=== PATIENT | female | born 1975 | race Caucasian/White ===

== ENCOUNTER 2023-08-14 01:10 | Outpatient (CLI) | payer OTHER, SELFPAY ==
[2023-08-14 12:06] LABS: HCT 43.6 % (36.0-46.0); HGB 14.3 g/dL (11.2-15.7); MCH 29.2 pg (27.0-33.0); MCHC 32.8 % (32.0-36.0); MCV 89 fL (80-95); Platelet Count 305 10^3/uL (130-400); RBC 4.89 10^6/uL (3.93-5.22); RDW 12.7 % (11.7-14.6); RDW-SD 41.7 fL; WBC 8.41 10^3/uL (4.4-10.8)
[2023-08-14 12:33] LABS: ALT 19 U/L (14-59); AST 18 U/L (15-37); Albumin 3.7 g/dL (3.4-5.0); Alkaline Phosphatase 49 U/L (46-116); Anion Gap 6.2 mmol/L (3-11); BUN 13 mg/dL (7-18); Bilirubin, Total 0.6 mg/dL (0.2-1.0); CO2 27.8 mmol/L (21.0-32.0); CREATININE 0.9 mg/dL (0.55-1.02); Calcium 9.3 mg/dL (8.5-10.1); Calculated LDL 57 mg/dL (<100); Chloride 103 mmol/L (98-107); Cholesterol 139 mg/dL (<200); Estimated GFR 78.86 (mL/min/1.73m2); Ferritin 88 ng/mL (8-252); Glucose 88 mg/dL (74-106); HDL Cholesterol 74 mg/dL (40-60); Potassium 3.8 mmol/L (3.5-5.1); Sodium 137 mmol/L (136-145); Total Protein 7.3 g/dL (6.4-8.2); Triglyceride 41 mg/dL (<150)
[2023-08-14 12:34] LABS: Iron 135 ug/dL (50-170)
== END 2023-08-14 01:11 | disposition home or self-care (01) ==
LOC: LOS 01:11
PROVIDERS: PCP Nurse Practitioner Family; Visit Provider Nurse Practitioner Family
DX: R63.5 Abnormal weight gain (principal); G47.8 Other sleep disorders; N95.1 Menopausal and female climacteric states; Z13.220 Encounter for screening for lipoid disorders
CPT/HCPCS: 36415; 80053; 80061; 85027; 82728; 83540

== ENCOUNTER 2024-07-29 00:44 | Outpatient (CLI) | payer OTHER, SELFPAY ==
[2024-07-29 12:30] LABS: HCT 43.5 % (36.0-46.0); HGB 14.1 g/dL (11.2-15.7); MCH 29.5 pg (27.0-33.0); MCHC 32.4 % (32.0-36.0); MCV 91 fL (80-95); MPV 11.2 fL (8.0-11.0); Platelet Count 265 10^3/uL (130-400); RBC 4.78 10^6/uL (3.93-5.22); RDW-SD 43.4 fL; WBC 6.61 10^3/uL (4.4-10.8)
[2024-07-29 12:43] LABS: ALT 16 U/L (14-59); AST 19 U/L (15-37); Albumin 3.6 g/dL (3.4-5.0); Alkaline Phosphatase 49 U/L (46-116); Anion Gap 5.6 mmol/L (3-11); BUN 16 mg/dL (7-18); Bilirubin, Total 0.64 mg/dL (0.2-1.0); CO2 28.4 mmol/L (21.0-32.0); Calcium 8.9 mg/dL (8.5-10.1); Chloride 105 mmol/L (98-107); Estimated GFR 69.06 (mL/min/1.73m2); Glucose 86 mg/dL (74-106); Potassium 3.8 mmol/L (3.5-5.1); Sodium 139 mmol/L (136-145)
[2024-07-29 13:02] LABS: COMMENT (LAB VIEW ONLY) 170.84 mg/dL; Microalb ug/mg Crea 5.9 ug/mg Cr
== END 2024-07-29 00:45 | disposition home or self-care (01) ==
LOC: LOS 00:44
PROVIDERS: PCP Nurse Practitioner Family; Visit Provider Nurse Practitioner Family
DX: R03.0 Elevated blood-pressure reading, without diagnosis of hypertension (principal); R04.0 Epistaxis
CPT/HCPCS: 36415; 80053; 85027; 82043; 82570